=== PATIENT | male | born 2000 | race Caucasian/White ===

== ENCOUNTER 2024-11-20 10:13 | Emergency (ER) | payer OTHER, MEDICAID ==
[~2024-11-20] VITALS: Ht 162.6 cm; Wt 68.0 kg
[2024-11-20 10:21] VITALS: BP 148/105; PULSE 138; RESP 20; TEMP 98.5; O2SAT 97
== END 2024-11-20 11:19 ==
LOC: EMS 10:15
DX: S01.01XA Laceration without foreign body of scalp, initial encounter (principal); S61.512A Laceration without foreign body of left wrist, initial encounter; S51.812A Laceration without foreign body of left forearm, initial encounter; F32.A Depression, unspecified; Y33.XXXA Other specified events, undetermined intent, initial encounter; Y93.89 Activity, other specified; Y92.89 Other specified places as the place of occurrence of the external cause; Y99.8 Other external cause status
CPT/HCPCS: 99283; Z7502